=== PATIENT | female | born 1955 | race Caucasian/White ===

== ENCOUNTER 2016-07-09 19:00 | Inpatient (IN) | payer OTHER ==
[~2016-07-09] VITALS: Ht 170.2 cm; Wt 107.6 kg
[2016-07-09] MEDS ORDERED: BUSPAR7.5 MG PO (21:50)
[2016-07-09 21:52] LABS: HEMATOCRIT 36.6 % (36.0-46.0); MCH 31.7 PG (29.0-34.0); MCHC 32.8 G/DL (30.0-36.0); MCV 96.6 FL (83-99); MEAN PLAT.VOLUME 9.3 uM^3 (9.5-12.4); PLATELET COUNT 436 K/uL (156-360); RBC DIS.WIDTH-CV 14.3 % (11.8-14.6); RBC DIS.WIDTH-SD 50.7 % (39-53); RED BLOOD COUNT 3.79 M/uL (3.80-5.20); WHITE BLOOD COUNT 23.6 K/uL (4.1-10.2)
[2016-07-09] MEDS ORDERED: LORAZEPAM1 MG PO (21:54)
[2016-07-09] MEDS ORDERED: BUPROPION XL150 MG PO (21:55)
[2016-07-09] MEDS ORDERED: CYCLOBENZAPRINE5 MG PO (21:55)
[2016-07-09] MEDS ORDERED: ESCITALOPRAM OX20 MG PO (21:56)
[2016-07-09] MEDS ORDERED: DALIRESP500 MCG PO (21:56)
[2016-07-09] MEDS ORDERED: SYMBICORT60 INHALAT IH (21:57)
[2016-07-09] MEDS ORDERED: PANTOPRAZOLE SO40 MG PO (21:58)
[2016-07-09] MEDS ORDERED: PREDNISONE20 MG PO (21:58)
[2016-07-09] MEDS ORDERED: PROAIR HFA8.5 GM IH (21:59)
[2016-07-09] MEDS ORDERED: DUONEB 2.5-0.5 M3 ML AEROSOL (21:59)
[2016-07-09 22:26] LABS: CHLORIDE 104 mEq/L (99-109); POTASSIUM 4.1 mEq/L (3.7-5.4); SODIUM 140 mEq/L (136-147)
[2016-07-09 22:27] LABS: GLUCOSE 124 mg/dL (70-99)
[2016-07-09 22:29] LABS: ANION GAP 10 MEQ/L (2-14)
[2016-07-09 22:31] LABS: GFR ESTIMATE (CALCULATED) > 59 mL/min/
[2016-07-09 22:32] LABS: UREA NITROGEN (BUN) 16 mg/dL (9-23)
[2016-07-09 23:10] LABS: POINT-OF-CARE METER ID UU14100415
[2016-07-10 00:08] LABS: EOSINOPHIL (%) 0 % (0-5); IMMATURE GRANULOCYTE (%) 0.7 % (0.0-0.7); IMMATURE GRANULOCYTE COUNT 0.2 K/uL; INSTRUMENT ABS NEUTROPHIL CT 21.1 K/uL; LYMPHOCYTE COUNT 0.8 K/uL (1.0-2.8); MONOCYTE (%) 6.4 % (3-12); MONOCYTE COUNT 1.5 K/uL (0-0.8); NEUTROPHIL (%) 89.5 % (45-76); NEUTROPHIL COUNT 21.1 K/uL (1.8-6.4)
[2016-07-10 01:05] VITALS: BP 139/79
[2016-07-10 06:16] LABS: EOSINOPHIL (%) 0 % (0-5); HEMATOCRIT 32.6 % (36.0-46.0); IMMATURE GRANULOCYTE (%) 0.6 % (0.0-0.7); IMMATURE GRANULOCYTE COUNT 0.1 K/uL; INSTRUMENT ABS NEUTROPHIL CT 17.9 K/uL; LYMPHOCYTE COUNT 0.4 K/uL (1.0-2.8); MCH 31.8 PG (29.0-34.0); MCHC 32.2 G/DL (30.0-36.0); MCV 98.8 FL (83-99); MEAN PLAT.VOLUME 9.3 uM^3 (9.5-12.4); MONOCYTE (%) 2.1 % (3-12); MONOCYTE COUNT 0.4 K/uL (0-0.8); NEUTROPHIL (%) 95.2 % (45-76); NEUTROPHIL COUNT 17.9 K/uL (1.8-6.4); PLATELET COUNT 375 K/uL (156-360); RBC DIS.WIDTH-CV 14.5 % (11.8-14.6); RBC DIS.WIDTH-SD 52.8 % (39-53); WHITE BLOOD COUNT 18.8 K/uL (4.1-10.2)
[2016-07-10 06:38] LABS: ANION GAP 9 MEQ/L (2-14); CHLORIDE 104 MEQ/L (99-109); GFR ESTIMATE (CALCULATED) > 59 mL/min/; GLUCOSE 215 mg/dL (70-99); POTASSIUM 4.8 MEQ/L (3.7-5.4); SAMPLE HEMOLYSIS CHECK 0; SAMPLE ICTERIC CHECK 0; SAMPLE LIPEMIA CHECK 0; SODIUM 140 MEQ/L (136-147); UREA NITROGEN (BUN) 20 mg/dL (9-23)
[2016-07-10 07:45] VITALS: BP 143/74
[2016-07-10 07:48] LABS: POINT-OF-CARE METER ID UU13113725
[2016-07-10 11:12] LABS: INTERNAL CONTROL VALID? YES
[2016-07-10 12:02] VITALS: BP 149/90
[2016-07-10 15:33] LABS: INFLUENZA A VIRAL ANTIGEN NEGATIVE; INFLUENZA B VIRAL ANTIGEN NEGATIVE
[2016-07-10 16:39] VITALS: BP 137/84
[2016-07-10 19:22] VITALS: BP 140/70
[2016-07-10 19:44] VITALS: BP 119/62
[2016-07-10 21:39] LABS: POINT-OF-CARE METER ID UU13113725
[2016-07-11 00:59] VITALS: BP 125/75
[2016-07-11 04:18] VITALS: BP 124/65
[2016-07-11 06:57] LABS: EOSINOPHIL (%) 0 % (0-5); HEMATOCRIT 31.9 % (36.0-46.0); IMMATURE GRANULOCYTE (%) 0.7 % (0.0-0.7); IMMATURE GRANULOCYTE COUNT 0.1 K/uL; INSTRUMENT ABS NEUTROPHIL CT 13.7 K/uL; LYMPHOCYTE COUNT 0.7 K/uL (1.0-2.8); MCH 31.9 PG (29.0-34.0); MCHC 32.3 G/DL (30.0-36.0); MCV 98.8 FL (83-99); MEAN PLAT.VOLUME 9.2 uM^3 (9.5-12.4); MONOCYTE (%) 5.1 % (3-12); MONOCYTE COUNT 0.8 K/uL (0-0.8); NEUTROPHIL (%) 89.5 % (45-76); NEUTROPHIL COUNT 13.7 K/uL (1.8-6.4); PLATELET COUNT 371 K/uL (156-360); RBC DIS.WIDTH-CV 14.4 % (11.8-14.6); RED BLOOD COUNT 3.23 M/uL (3.80-5.20); WHITE BLOOD COUNT 15.3 K/uL (4.1-10.2)
[2016-07-11 07:21] LABS: ANION GAP 8 MEQ/L (2-14); CHLORIDE 109 MEQ/L (99-109); GFR ESTIMATE (CALCULATED) > 59 mL/min/; GLUCOSE 137 mg/dL (70-99); MAGNESIUM 2.2 mg/dl (1.3-2.7); POTASSIUM 4.7 MEQ/L (3.7-5.4); SAMPLE HEMOLYSIS CHECK 0; SAMPLE ICTERIC CHECK 0; SAMPLE LIPEMIA CHECK 0; SODIUM 144 MEQ/L (136-147); UREA NITROGEN (BUN) 23 mg/dL (9-23)
[2016-07-11 08:25] VITALS: BP 149/83
[2016-07-11 11:39] LABS: POINT-OF-CARE METER ID UU13113725
[2016-07-11 15:37] VITALS: BP 126/80
[2016-07-11 16:14] LABS: POINT-OF-CARE METER ID UU13113725
[2016-07-11 21:56] LABS: POINT-OF-CARE METER ID UU13113725
[2016-07-11 23:11] VITALS: BP 135/74
[2016-07-12 05:00] LABS: EOSINOPHIL (%) 0 % (0-5); HEMATOCRIT 33.9 % (36.0-46.0); IMMATURE GRANULOCYTE (%) 1.3 % (0.0-0.7); IMMATURE GRANULOCYTE COUNT 0.2 K/uL; INSTRUMENT ABS NEUTROPHIL CT 11.4 K/uL; LYMPHOCYTE COUNT 0.6 K/uL (1.0-2.8); MCH 31.9 PG (29.0-34.0); MCHC 32.4 G/DL (30.0-36.0); MCV 98.3 FL (83-99); MEAN PLAT.VOLUME 9.4 uM^3 (9.5-12.4); MONOCYTE (%) 4.5 % (3-12); MONOCYTE COUNT 0.6 K/uL (0-0.8); NEUTROPHIL (%) 89.3 % (45-76); NEUTROPHIL COUNT 11.4 K/uL (1.8-6.4); PLATELET COUNT 412 K/uL (156-360); RBC DIS.WIDTH-CV 14.5 % (11.8-14.6); RBC DIS.WIDTH-SD 52.1 % (39-53); RED BLOOD COUNT 3.45 M/uL (3.80-5.20); WHITE BLOOD COUNT 12.7 K/uL (4.1-10.2)
[2016-07-12 05:16] LABS: CHLORIDE 107 mEq/L (99-109); SODIUM 140 mEq/L (136-147)
[2016-07-12 05:17] LABS: MAGNESIUM 1.9 mg/dL (1.3-2.7)
[2016-07-12 05:18] LABS: GLUCOSE 137 mg/dL (70-99)
[2016-07-12 05:20] LABS: ANION GAP 7 MEQ/L (2-14)
[2016-07-12 05:22] LABS: GFR ESTIMATE (CALCULATED) > 59 mL/min/
[2016-07-12 05:23] LABS: UREA NITROGEN (BUN) 22 mg/dL (9-23)
[2016-07-12 06:40] VITALS: BP 148/79
[2016-07-12 06:43] LABS: POINT-OF-CARE METER ID UU13113725
[2016-07-12 11:09] LABS: POINT-OF-CARE METER ID UU13113725
[2016-07-12 15:00] VITALS: BP 149/81
[2016-07-12 16:17] LABS: POINT-OF-CARE METER ID UU13113725
[2016-07-12 18:57] VITALS: BP 158/82
[2016-07-12 21:34] LABS: POINT-OF-CARE METER ID UU13113725
[2016-07-12 22:17] VITALS: BP 163/82
[2016-07-13 03:43] VITALS: BP 152/83
[2016-07-13 05:49] LABS: POINT-OF-CARE METER ID UU13113725
[2016-07-13 06:18] LABS: EOSINOPHIL (%) 0 % (0-5); HEMATOCRIT 34.5 % (36.0-46.0); IMMATURE GRANULOCYTE (%) 1.5 % (0.0-0.7); IMMATURE GRANULOCYTE COUNT 0.2 K/uL; INSTRUMENT ABS NEUTROPHIL CT 9.8 K/uL; LYMPHOCYTE COUNT 0.6 K/uL (1.0-2.8); MCH 31.7 PG (29.0-34.0); MCHC 32.5 G/DL (30.0-36.0); MCV 97.7 FL (83-99); MEAN PLAT.VOLUME 9.1 uM^3 (9.5-12.4); MONOCYTE (%) 4.8 % (3-12); MONOCYTE COUNT 0.5 K/uL (0-0.8); NEUTROPHIL (%) 88.2 % (45-76); NEUTROPHIL COUNT 9.8 K/uL (1.8-6.4); PLATELET COUNT 440 K/uL (156-360); RBC DIS.WIDTH-CV 14.5 % (11.8-14.6); RBC DIS.WIDTH-SD 51.8 % (39-53); RED BLOOD COUNT 3.53 M/uL (3.80-5.20); WHITE BLOOD COUNT 11.1 K/uL (4.1-10.2)
[2016-07-13 06:43] LABS: ANION GAP 6 MEQ/L (2-14); CHLORIDE 102 MEQ/L (99-109); GFR ESTIMATE (CALCULATED) > 59 mL/min/; GLUCOSE 112 mg/dL (70-99); MAGNESIUM 2.1 mg/dl (1.3-2.7); POTASSIUM 5.2 MEQ/L (3.7-5.4); SAMPLE HEMOLYSIS CHECK 0; SAMPLE ICTERIC CHECK 0; SAMPLE LIPEMIA CHECK 0; SODIUM 140 MEQ/L (136-147); UREA NITROGEN (BUN) 19 mg/dL (9-23)
[2016-07-13 06:52] LABS: VANCOMYCIN, TROUGH 12.8 MCG/ML (10-20)
[2016-07-13 09:26] VITALS: BP 164/79
[2016-07-13 11:48] LABS: POINT-OF-CARE METER ID UU13113725
[2016-07-13 12:06] VITALS: BP 176/93
[2016-07-13 16:53] LABS: POINT-OF-CARE METER ID UU13113725
[2016-07-13 17:07] VITALS: BP 140/78
[2016-07-13 20:44] LABS: POINT-OF-CARE METER ID UU13113725
[2016-07-13 22:36] VITALS: BP 159/81
[2016-07-14 05:37] LABS: EOSINOPHIL (%) 0 % (0-5); HEMATOCRIT 33.3 % (36.0-46.0); IMMATURE GRANULOCYTE (%) 1.4 % (0.0-0.7); IMMATURE GRANULOCYTE COUNT 0.2 K/uL; INSTRUMENT ABS NEUTROPHIL CT 11.3 K/uL; LYMPHOCYTE COUNT 0.8 K/uL (1.0-2.8); MCH 31.5 PG (29.0-34.0); MCHC 32.4 G/DL (30.0-36.0); MCV 97.1 FL (83-99); MEAN PLAT.VOLUME 9.2 uM^3 (9.5-12.4); MONOCYTE (%) 8.1 % (3-12); MONOCYTE COUNT 1.1 K/uL (0-0.8); NEUTROPHIL (%) 84.5 % (45-76); NEUTROPHIL COUNT 11.3 K/uL (1.8-6.4); PLATELET COUNT 457 K/uL (156-360); RBC DIS.WIDTH-CV 14.3 % (11.8-14.6); RBC DIS.WIDTH-SD 50.7 % (39-53); RED BLOOD COUNT 3.43 M/uL (3.80-5.20); WHITE BLOOD COUNT 13.3 K/uL (4.1-10.2)
[2016-07-14 05:55] LABS: POINT-OF-CARE METER ID UU13113725
[2016-07-14 06:42] LABS: ANION GAP 6 MEQ/L (2-14); CHLORIDE 102 MEQ/L (99-109); GFR ESTIMATE (CALCULATED) > 59 mL/min/; GLUCOSE 140 mg/dL (70-99); SAMPLE HEMOLYSIS CHECK 0; SAMPLE ICTERIC CHECK 0; SAMPLE LIPEMIA CHECK 0; SODIUM 139 MEQ/L (136-147); UREA NITROGEN (BUN) 22 mg/dL (9-23)
[2016-07-14 06:59] VITALS: BP 168/80
[2016-07-14 07:01] LABS: POTASSIUM 3.9 MEQ/L (3.7-5.4)
[2016-07-14] MEDS ORDERED: PREDNISONE10 MG PO (10:48)
[2016-07-14] MEDS ORDERED: AUGMENTIN500 MG PO (10:48)
[2016-07-14 11:39] LABS: POINT-OF-CARE METER ID UU13113725
== END 2016-07-14 13:30 | disposition home health service (06) | DRG 871 ==
LOC: EME 19:00 → RME 19:00 → 5EAST 22:54 → EDOF 22:54 → 5EAST 07-10 00:38
PROVIDERS: Family Medicine; Internal Medicine; Physician Assistant
DX: A41.9 Sepsis, unspecified organism (principal); J18.9 Pneumonia, unspecified organism; J96.21 Acute and chronic respiratory failure with hypoxia; J44.0 Chronic obstructive pulmonary disease with (acute) lower respiratory infection; J44.1 Chronic obstructive pulmonary disease with (acute) exacerbation; F32.9 Major depressive disorder, single episode, unspecified; F41.9 Anxiety disorder, unspecified; E66.9 Obesity, unspecified; E83.52 Hypercalcemia; Z68.37 Body mass index [BMI] 37.0-37.9, adult; D47.3 Essential (hemorrhagic) thrombocythemia; Z99.81 Dependence on supplemental oxygen
CPT/HCPCS: 71020; 80048; 80202; 82948; 83605; 83735; 85025; 87040; 87070; 87205; 87449; 87502; 93005; 94640; 94640 76; 94760; 94799; 99202; 99281; 99285; J0456; J0692; J1650; J2543; J2920; J2930; J3370; J7030; J7050; J7512